=== PATIENT | male | born 1975 | race Two or more races ===

== ENCOUNTER 2020-07-08 10:28 | Outpatient (CLI) | payer OTHER | END 2020-07-08 13:42 | disposition home or self-care (01) | LOC: OFIC 805 10:28 | PROVIDERS: ATTEND Otolaryngology Otology & Neurotology | DX: R09.82 Postnasal drip (principal); J30.89 Other allergic rhinitis; J34.89 Other specified disorders of nose and nasal sinuses ==

== ENCOUNTER 2020-08-17 09:01 | Outpatient (CLI) | payer OTHER | END 2020-08-17 09:24 | disposition home or self-care (01) | LOC: OFIC 805 09:01 | PROVIDERS: ATTEND Otolaryngology Otology & Neurotology | DX: R09.82 Postnasal drip (principal); J30.89 Other allergic rhinitis; J34.89 Other specified disorders of nose and nasal sinuses ==